=== PATIENT | male | born 1965 | race Caucasian/White ===

== ENCOUNTER 2022-11-07 14:30 | Emergency (ER) | payer OTHER ==
[~2022-11-07] VITALS: Ht 162.6 cm; Wt 63.5 kg
[2022-11-07 15:05] VITALS: BP 128/79; PULSE 81; RESP 16; TEMP 98.1; O2SAT 99
[2022-11-07] MEDS ORDERED: ACETAMINOPHEN 650 MG/20.3 ML UDC PO ONE (16:05)
[2022-11-07] MEDS ORDERED: ACETAMINOPHEN 325 MG TAB ONE (18:45)
[2022-11-07 19:39] VITALS: BP 128/79; PULSE 81; RESP 16; TEMP 98.1; O2SAT 96
== END 2022-11-07 19:39 | disposition home or self-care (01) ==
LOC: MED 14:30
DX: M54.50 Low back pain, unspecified (principal); R20.0 Anesthesia of skin; R03.0 Elevated blood-pressure reading, without diagnosis of hypertension
CPT/HCPCS: 72110; 93971; 99284; Q0092